=== PATIENT | male | born 1990 | race Two or more races ===

== ENCOUNTER 2017-02-15 11:21 | Day surgery (SDC) | payer BC, OTHER ==
[~2017-02-15] VITALS: Ht 182.9 cm; Wt 93.6 kg
[~2017-02-15 11:21] MED LIST: DRON400T2 PO
[2017-02-15 11:52] VITALS: Ht 182.9 cm; Wt 93.6 kg
[2017-02-15] MEDS ORDERED: LIDOCAINE 2% (SDV) 5 ML INJ ONE (12:12)
[2017-02-15] MEDS ORDERED: PROPOFOL 20 ML ONE (12:12)
[2017-02-15] MEDS ORDERED: MIDAZOLAM 1 MG/ML 2 ML INJ ONE (12:12)
[2017-02-15 12:15] VITALS: BP 127/72; PULSE 76; RESP 18
[2017-02-15 13:10] VITALS: BP 112/65; PULSE 65; RESP 16
--- NOTE | 2017-02-15 14:05 | OPPN ---
Date/Time of Note Date/Time of Note DATE: 02/15/17 TIME: 14:03 Proc Note GI Procedure Date 02/15/17 Indication: diagnostic Pre-procedure Diagnosis colitis Post-procedure Diagnosis ulcerative colitis Procedure Performed: Colonoscopy Surgeon see signature line Non Destructive Testing Specialist none Anesthesia Type: MAC Anesthesiologist: FARIBA CERRATO MD Tourniquet Time none EBL none Transfusion required none Biopsy 1: colon bx Grafts/Implants none Tubes/Drains none Complication(s) none Disposition: home Procedure Description under MAC colonoscopy done ulcerative colitis bx done HENRIQUE LASSITER MD Feb 15, 2017 14:05
--- NOTE | 2017-02-15 23:00 | GILP ---
DATE OF PROCEDURE: NAME OF PROCEDURE: Colonoscopy up to cecum. PREOPERATIVE DIAGNOSIS: Patient presenting with history of bloody bowel movements, rule out inflamm atory bowel disease, colorectal neoplasm, etc. POSTOPERATIVE DIAGNOSIS: Ulcerative colitis starting from the rectum up to mid descending colon, pe rhaps even up to proximal descending colon. Biopsies were obtained as follows. Rest of the colon a ppeared normal. DESCRIPTION OF PROCEDURE: After the informed written consent was obtained, the patient was asked to lie on the left lateral side. Intravenous anesthesia was given by anesthesiologist, Dr. Gonzlaez. When the patient became somnolent, the Olympus video colonoscope was introduced into the rectum and scope was advanced all the way to the cecum. From the rectum up to the mid descending colon, even up to proximal descending colon, mucosa appeared beefy red and friability of superficial ulcers note d in the sigmoid colon. The degree seemed to be 2+ in the rectosigmoid, 3+ in the distal descending colon and a 2+ in the mid and proximal descending colon. Transverse colon and ascending colon appe ared normal. Biopsies were obtained and put randomly in the ascending colon, transverse colon, desc ending colon and rectosigmoid area. A moderate degree of external hemorrhoids were noted. Scope at this time was withdrawn and the procedure was terminated. PLAN: Recommend Lovaza enemas 1 into the rectum daily for 10 days, recommend Asacol HD 1 tablet 3 t imes a day. Dictated By: HENRIQUE THAYER/VERONICA Conf#: [id number] DID#: [id number]
== END 2017-02-15 16:49 | disposition home or self-care (01) ==
LOC: GIL 11:21
PROVIDERS: ATTEND Internal Medicine Gastroenterology
DX: K51.90 Ulcerative colitis, unspecified, without complications (principal)
CPT/HCPCS: 45380; 88305; J2250

== ENCOUNTER 2018-09-12 06:34 | Day surgery (SDC) | payer OTHER ==
[~2018-09-12] VITALS: Ht 175.3 cm; Wt 88.3 kg
--- NOTE | 2018-09-12 07:25 | PREAC ---
Date/Time of Note Date/Time of Note DATE: 09/12/18 TIME: 07:24 Anesthesia Eval and Record Evaluation Time Pre-Procedure Interview DATE: 09/12/18 TIME: 07:24 Age 28 Sex male NPO: 8 hrs Preoperative diagnosis ulcerative colitis Planned procedure colonoscopy Past Medical History Past Medical History: Includes GI: Other (UC) Recreational drugs: Marijuana (vapes daily, last used 2 days ago) Surgery & Anesthesia Issues No known issue Meds Anticoagulation: No Beta Zuleika within 24 hr: No Reason Beta Zuleika not given: Pt. not on B-Zuleika Reported Medications [none] No Conflict Check 02/15/17 Meds reviewed: Yes Allergies Coded Allergies: No Known Allergy (Verified , 02/15/17) Allergies Reviewed: Yes Labs/Studies Labs Reviewed: Other (n/a) test: N/A Pre-procedure Exam Airway: Adequate mouth opening, Adequate thyromental dist Mallampati: Mallampati I Teeth: Normal Lung: Normal Heart: Normal ASA Physical Status ASA physical status: 2 Emergency: None Planned Anesthetic General/MAC: MAC Planned Pain Management Parenteral pain med Pre-operative Attestations Prior to commencing anesthesia and surgery, the patient was re-evaluated, there was verification of: *The patient's identity *The results of appropriate recent lab work and preoperative vital signs *The above evaluation not changing prior to induction *Anesthetic plan, risk benefits, alternative and complications discussed with patient/family; questions answered; patient/family understands, accepts and wishes to proceed. MEE ROWLAND Sep 12, 2018 07:25
[2018-09-12] MEDS ORDERED: PROPOFOL 20 ML ONE (07:26)
[2018-09-12 07:35] VITALS: BP 119/69; PULSE 70; RESP 21
[2018-09-12] MEDS ORDERED: MESA1.2T2 PO (07:37)
[2018-09-12 07:38] VITALS: Ht 175.3 cm; Wt 88.3 kg
[2018-09-12 08:30] VITALS: BP 103/60; RESP 16
--- NOTE | 2018-09-12 08:33 | PAC ---
Date/Time of Note Date/Time of Note DATE: 09/12/18 TIME: 08:33 Post-Anesthesia Notes Post-Anesthesia Note Last documented vital signs Vital Signs Date Temp Pulse Resp B/P (MAP) Pulse Ox O2 O2 Flow FiO2 Time Delivery Rate 09/12/18 16 103/60 100 Room Air 08:30 (74) 09/12/18 97.4 70 07:35 Activity: WNL Respiratory function: WNL Cardiovascular function: WNL Mental status: Baseline Pain reasonably controlled: Yes Hydration appropriate: Yes Nausea/Vomiting absent: Yes MEE ROWLAND Sep 12, 2018 08:33
== END 2018-09-12 11:07 | disposition home or self-care (01) ==
LOC: GIL 06:34
PROVIDERS: ATTEND Internal Medicine Gastroenterology
DX: R19.7 Diarrhea, unspecified (principal)
CPT/HCPCS: 88305